=== PATIENT | female | born 1995 | race Caucasian/White ===

== ENCOUNTER 2016-07-03 14:39 | Emergency (ER) | payer OTHER ==
[2016-07-03] MEDS ORDERED: ONDANSETRON 4 MG/2 ML VIAL IVP STA (15:17)
[2016-07-03] MEDS ORDERED: SODIUM CHLORIDE 0.9% 1,000 ML IV ONE (15:17)
[2016-07-03] MEDS ORDERED: ONDANSETRON 4 MG/2 ML VIAL ONE (15:30)
[2016-07-03] MEDS ORDERED: POTASSIUM BICARB 25 MEQ TABLET PO STA (16:20)
[2016-07-03] MEDS ORDERED: POTASSIUM BICARB 25 MEQ TABLET PO ONE (16:24)
== END 2016-07-03 16:31 | disposition home or self-care (01) ==
DX: E86.0 Dehydration (principal); E87.6 Hypokalemia; K29.70 Gastritis, unspecified, without bleeding; Z87.11 Personal history of peptic ulcer disease; F17.210 Nicotine dependence, cigarettes, uncomplicated
CPT/HCPCS: 36415; 80053; 81003; 81025; 83690; 85025; 96374; 99283; 99284; A9270

== ENCOUNTER 2017-01-04 08:00 | Outpatient (CLI) | payer OTHER | END 2017-01-04 08:01 | disposition home or self-care (01) | LOC: LAB.R 08:00 | PROVIDERS: ATTEND Registered Nurse | DX: N92.5 Other specified irregular menstruation (principal) | CPT/HCPCS: 87491; 87591 ==